=== PATIENT | female | born 1980 | race Caucasian/White ===

== ENCOUNTER 2019-12-30 16:24 | Emergency (ER) | payer OTHER ==
[2019-12-30 17:23] LABS: Basophils # (A) 0.1 k/uL (0-0.2); Basophils % (A) 1 %; Eosinophils # (A) 0.1 k/uL (0-0.7); Eosinophils % (A) 1 %; HCT 40.6 % (34.0-46.0); HGB 13.7 gm/dL (11.4-16.0); Lymphocytes # (A) 4.4 k/uL (1.0-4.8); Lymphocytes % (A) 36 %; MCH 30.3 pg (25.0-35.0); MCHC 33.7 g/dL (31.0-37.0); Monocytes # (A) 0.5 k/uL (0-1.0); Monocytes % (A) 4 %; Neutrophils # (A) 6.9 k/uL (1.3-7.7); Neutrophils % (A) 57 %; Platelet Count 314 k/uL (150-450); RBC 4.52 m/uL (3.80-5.40); RDW 12.8 % (11.5-15.5); WBC 12.2 k/uL (3.8-10.6)
[2019-12-30 17:31] LABS: Albumin 4.2 g/dL (3.5-5.0); Calcium 9.3 mg/dL (8.4-10.2); Magnesium 1.6 mg/dL (1.6-2.3); Potassium 3.6 mmol/L (3.5-5.1); Total Bilirubin 0.4 mg/dL (0.2-1.3); Total Protein 6.9 g/dL (6.3-8.2)
[2019-12-30 17:33] LABS: Partial Thromboplastin Time 25.2 sec (22.0-30.0); Prothrombin Time 10.3 sec (9.0-12.0)
--- NOTE | 2019-12-30 18:18 | XR ---
EXAMINATION TYPE: XR shoulder complete LT DATE OF EXAM: 12/30/2019 COMPARISON: NONE HISTORY: Pain TECHNIQUE: Three views are submitted. FINDINGS: The osseous structures are intact. There is no acute fracture or dislocation. The AC joint is maint ained. IMPRESSION: 1. No acute process.
--- NOTE | 2019-12-30 18:19 | XR ---
EXAMINATION TYPE: XR chest 2V DATE OF EXAM: 12/30/2019 COMPARISON: NONE TECHNIQUE: PA and lateral views submitted. HISTORY: Pain FINDINGS: The lungs are clear and there is no pneumothorax, pleural effusion, or focal pneumonia. No overt fa ilure. IMPRESSION: 1. No acute process.
--- NOTE | 2019-12-30 18:38 | CT ---
EXAMINATION TYPE: CT brain sandro wo con DATE OF EXAM: 12/30/2019 COMPARISON: None HISTORY: fall following seizure CT DLP: 1235.7 mGycm Automated exposure control for dose reduction was used. Multiple axial sections were obtained of the brain without contrast. Multiple axial sections were obt ained from the skull base to T1 vertebra without contrast. FINDINGS: Cervical vertebra show some straightening. Disc spaces are normal. Posterior elements are intact. The re is no evidence of a fracture. Skull base is intact. Ventricles and sulci appear normal. There is no mass effect nor midline shift. There is no sign of in tracranial hemorrhage. The calvarium is intact. IMPRESSION: Normal head CT scan. Mild straightening of the cervical spine is probably positional. No fracture.
--- NOTE | 2019-12-30 18:54 | ED ---
Chest Pain HPI - General Chief Complaint: Chest Pain Stated Complaint: Chest pain, lt arm pain Time Seen by Provider: 12/30/19 16:36 Source: patient Mode of arrival: ambulatory Limitations: no limitations - History of Present Illness Initial Comments: 39-year-old female presents today for chief complaint of left shoulder and chest pain after fall from seizure. Patient states she has a seizure disorder she said she really has not had evaluation for ibuprofen has whole-body shaking and this has been witnessed by family and children. Patient states she is usually on her follow-up at and then returns to regular activity she states this has been ongoing for years and she does not feel the need to be evaluated. Patient states that she had a seizure on Thursday she states she is unsure she hit her head but she believes she hit her left shoulder and said she has had left-sided chest pain and shoulder pain patient is able to fully range with discomfort the left shoulder she denies any numbness tingling loss of sensation. Patient denies any headache nausea vomiting dizziness neck pain photophobia fevers gait changes weakness of the upper extremity was or sensation deficits. Patient denies history of DVT/PE, leg swelling, pain with deep inspiration, jaw pain, right arm pain, chest pressure. Pain described as sharp increasing with rom of the left shoulder. Remaining ROS (-). - Related Data Allergies Allergy/AdvReac Type Severity Reaction Status Date / Time meloxicam [From Mobic] Allergy Unknown Verified 12/30/19 16:31 meperidine [From Demerol] Allergy Unknown Verified 12/30/19 16:31 Review of Systems ROS Statement: Those systems with pertinent positive or pertinent negative responses have been documented in the HPI. ROS Other: All systems not noted in ROS Statement are negative. EKG Findings - EKG Comments: EKG Findings:: Ventricular rate 68 bpm, W[place] interval 152 ms, QRS duration 88 ms the QT/QTC 38/412 ms. This is normal sinus is no ST elevation or depression noted. Past Medical History Past Medical History: Seizure Disorder History of Any Multi-Drug Resistant Organisms: None Reported Past Surgical History: Section Past Psychological History: Anxiety, Depression, PTSD Smoking Status: Current every day smoker Past Alcohol Use History: Occasional Past Drug Use History: None Reported General Exam - General Exam Comments Initial Comments: General: The patient is awake and alert, in no distress, and does not appear acutely ill. Eye: +3 mm pupils are equal, round and reactive to light, extra-ocular movements are intact. No nystagmus. There is normal conjunctiva bilaterally. No signs of icterus. Ears, nose, mouth and throat: There are moist mucous membranes and no oral lesions. Neck: The neck is supple, there is no tenderness or JVD. Cardiovascular: There is a regular rate and rhythm. No murmur, rub or gallop is appreciated. Respiratory: Lungs are clear to auscultation, respirations are non-labored, breath sounds are equal. No wheezes, stridor, rales, or rhonchi. Gastrointestinal: Soft, non-distended, non-tender abdomen without masses or organomegaly noted. There is no rebound or guarding present. Musculoskeletal: Normal inspection of the shoulder b/l. Radial pulses equal bilaterally 2+. Patient is able to fully range at the shoulders bilaterally patient completed the discomfort the left that spans across OF the chest. Patient is able to fully range at the elbows wrists bilaterally there is no evidence of wrist drop. Full sensation of the upper extremity bilaterally with full strength Neurological: A&O x 3. CN II-XII intact, There are no obvious motor or sensory deficits. Coordination appears grossly intact. Speech is normal. Gait without ataxia. Skin: Skin is warm and dry and no rashes or lesions are noted. Psychiatric: Cooperative, appropriate mood & affect, normal judgment. Limitations: no limitations Course Vital Signs 12/30/19 12/30/19 16:31 19:01 Temperature 97.9 F Pulse Rate 70 81 Respiratory 16 18 Rate Blood Pressure 119/67 112/73 O2 Sat by Pulse 100 99 Oximetry Chest Pain MDM - [facility] 39-year-old female presenting today for chief complaint of left shoulder and chest pain. Patient states she had a seizure and has had these for quite some time. Patient states that the pain situation left shoulder over the chest. X- ray revealed no osseous injury no dislocation patient is able to fully range on physical examination and was neurovascularly intact. Patient no focal neurological deficit CT the brain C-spine without abnormality. I recommended given patient has had no outpatient evaluation for recurrent seizures to allow transfer to [facility] and neurological evaluation. Patient refused transfer stating she prefers to f/u outpatient. Patient EKG WNL. she appears well ,VS stable. Discussed case attending provider who at this time is agreeable care plan and discharged. Disposition Clinical Impression: Chest pain, History of seizures, Left shoulder pain, Fall Disposition: HOME SELF-CARE Condition: Good Instructions (If sedation given, give patient instructions): Chest Pain (ED), New-Onset Seizure in Adults (ED) Additional Instructions: Please use medication as discussed. Please follow-up with family doctor in the next 2 days, neurology in next week. Please return to emergency room if the symptoms increase or worsen or for any other concerns. Is patient prescribed a controlled substance at d/c from ED?: No Referrals: None,Stated [Primary Care Provider] - 1-2 days [facility] [NON-STAFF] - 1-2 days Sravanthi Calhoun MD [Medical Doctor] - 1-2 days Time of Disposition: 18:53
[2019-12-30 21:06] VITALS: BP 112/73; PULSE 81; RESP 18; TEMP 97.9
== END 2019-12-30 19:01 | disposition home or self-care (01) ==
LOC: EC 16:24
DX: M25.512 Pain in left shoulder (principal); R07.9 Chest pain, unspecified; G40.909 Epilepsy, unspecified, not intractable, without status epilepticus; F17.200 Nicotine dependence, unspecified, uncomplicated; Z88.5 Allergy status to narcotic agent; Z88.6 Allergy status to analgesic agent; W19.XXXA Unspecified fall, initial encounter; Z53.29 Procedure and treatment not carried out because of patient's decision for other reasons
CPT/HCPCS: 36415; 70450; 71046; 72125; 80053; 82550; 83735; 84484; 85025; 85610; 85730; 93005; 99284

== ENCOUNTER 2020-08-28 15:24 | Emergency (ER) | payer OTHER ==
[2020-08-28 15:30] VITALS: RESP 18; TEMP 98.6
--- NOTE | 2020-08-28 15:40 | ED ---
Lower Extremity Injury HPI - General Chief Complaint: Extremity Injury, Lower Stated Complaint: ankle injury Time Seen by Provider: 08/28/20 15:26 Source: patient, RN notes reviewed Mode of arrival: ambulatory Limitations: no limitations - History of Present Illness Initial Comments: 40-year-old female presents emergency Department chief complaint left ankle pain. Patient states she was diagnosed with a fracture over for 4 weeks ago. She states she was in a walking boot up until one week ago when she took it off. She states she is supposed to wear it for 4 weeks but did not. This was diagnosed by orthopedic physician in [place]. Patient denies any paresthesias. Denies any new trauma. - Related Data Previous Rx's Medication Instructions Recorded Ibuprofen [Motrin] 600 mg PO Q8HR PRN #30 tab 08/28/20 Allergies Allergy/AdvReac Type Severity Reaction Status Date / Time meloxicam [From Mobic] Allergy Unknown Verified 08/28/20 15:25 meperidine [From Demerol] Allergy Unknown Verified 08/28/20 15:25 Review of Systems ROS Statement: Those systems with pertinent positive or pertinent negative responses have been documented in the HPI. ROS Other: All systems not noted in ROS Statement are negative. Past Medical History Past Medical History: Seizure Disorder History of Any Multi-Drug Resistant Organisms: None Reported Past Surgical History: Section Past Psychological History: Anxiety, Depression, PTSD, Schizophrenia Smoking Status: Current every day smoker Past Alcohol Use History: Occasional Past Drug Use History: Marijuana General Exam Limitations: no limitations General appearance: alert, in no apparent distress Head exam: Present: atraumatic, normocephalic, normal inspection Respiratory exam: Present: normal lung sounds bilaterally. Absent: respiratory distress, wheezes, rales, rhonchi, stridor Cardiovascular Exam: Present: regular rate, normal rhythm, normal heart sounds. Absent: systolic murmur, diastolic murmur, rubs, gallop, clicks Extremities exam: Present: other (Tenderness over the left lateral malleoli region, swellingneurovascularintactthereisnofoottendernessthereisnoproximaltib- fibtenderness) Course Vital Signs 08/28/20 08/28/20 15:26 15:43 Temperature 98.6 F Pulse Rate 80 74 Respiratory 18 18 Rate Blood Pressure 118/79 O2 Sat by Pulse 98 Oximetry Medical Decision Making - Medical Decision Making X-ray reviewed there shows healing fracture of the distal tibia. Patient advised to continue where her orthopedic boot. Return parameters were discussed. Disposition Clinical Impression: Closed fracture of left distal fibula Disposition: HOME SELF-CARE Condition: Stable Instructions (If sedation given, give patient instructions): Leg Fracture (ED) Additional Instructions: Please return to the Emergency Department if symptoms worsen or any other concerns. Prescriptions: Ibuprofen [Motrin] 600 mg PO Q8HR PRN #30 tab PRN Reason: Pain Is patient prescribed a controlled substance at d/c from ED?: No Referrals: None,Stated [Primary Care Provider] - 1-2 days Matthew Gaines MD [STAFF PHYSICIAN] - 1-2 days Time of Disposition: 16:13
[2020-08-28 15:44] VITALS: BP 118/79; PULSE 74
--- NOTE | 2020-08-28 16:16 | XR ---
EXAMINATION TYPE: XR ankle complete LT DATE OF EXAM: 08/28/2020 COMPARISON: None HISTORY: Pain, fall TECHNIQUE: Three-view left ankle FINDINGS: There is a transverse fracture distal fibula. Ankle mortise appears intact. No additional fractures are evident. Soft tissues appear normal. IMPRESSION: 1. Transverse fracture distal lateral malleolus.
== END 2020-08-28 16:22 | disposition home or self-care (01) ==
LOC: EC 15:24
DX: S82.62XA Displaced fracture of lateral malleolus of left fibula, initial encounter for closed fracture (principal); F17.200 Nicotine dependence, unspecified, uncomplicated; Z88.5 Allergy status to narcotic agent; Z88.8 Allergy status to other drugs, medicaments and biological substances; X58.XXXA Exposure to other specified factors, initial encounter
CPT/HCPCS: 99283

== ENCOUNTER 2021-01-19 11:33 | Emergency (ER) | payer OTHER ==
[2021-01-19 11:38] VITALS: BP 112/59; PULSE 90; RESP 18; TEMP 97.7
--- NOTE | 2021-01-19 11:55 | ED ---
ENT HPI - General Chief complaint: ENT Stated complaint: ENT Time Seen by Provider: 01/19/21 11:40 Source: patient Mode of arrival: ambulatory Limitations: no limitations - History of Present Illness Initial comments: 40-year-old female presents to the emergency department with a chief complaint of sore throat and right ear pain. Patient reports symptoms of an ongoing for about a week. Patient reports there is no pain when pulling on the ear but otherwise the pain is constant. Denies any loss of hearing. Patient also reports a sore throat was on this patient. She denies any fevers or chills. Denies any chest pain or shortness of breath. Patient is not diabetic. No significant submandibular swelling. - Related Data Previous Rx's Medication Instructions Recorded Ibuprofen [Motrin] 600 mg PO Q8HR PRN #30 tab 08/28/20 Allergies Allergy/AdvReac Type Severity Reaction Status Date / Time meloxicam [From Mobic] Allergy Unknown Verified 01/19/21 11:38 meperidine [From Demerol] Allergy Unknown Verified 01/19/21 11:38 Review of Systems ROS Statement: Those systems with pertinent positive or pertinent negative responses have been documented in the HPI. ROS Other: All systems not noted in ROS Statement are negative. Past Medical History Past Medical History: Seizure Disorder History of Any Multi-Drug Resistant Organisms: None Reported Past Surgical History: Section Past Psychological History: Anxiety, Depression, PTSD, Schizophrenia Smoking Status: Current every day smoker Past Alcohol Use History: Occasional Past Drug Use History: Marijuana General Exam Limitations: no limitations General appearance: alert, in no apparent distress Head exam: Present: atraumatic, normocephalic, normal inspection Eye exam: Present: normal appearance, PERRL, EOMI Pupils: Present: normal accommodation ENT exam: Present: normal exam, normal oropharynx (Mild right-sided tonsillar swelling and erythema. No signs of peritonsillar abscess. Uvula midline. No Andrew's angina.), mucous membranes moist, normal external ear exam. Absent: TM's normal bilaterally (Mild erythema in the right tympanic membrane) Neck exam: Present: normal inspection, full ROM. Absent: tenderness Respiratory exam: Present: normal lung sounds bilaterally. Absent: respiratory distress Cardiovascular Exam: Present: regular rate, normal rhythm, normal heart sounds Extremities exam: Present: normal inspection, full ROM. Absent: tenderness Back exam: Present: normal inspection, full ROM. Absent: tenderness, CVA tenderness (R), CVA tenderness (L) Neurological exam: Present: alert, oriented X3 Psychiatric exam: Present: normal affect, normal mood Skin exam: Present: warm, dry, intact, normal color Course Vital Signs 01/19/21 11:35 Temperature 97.7 F Pulse Rate 90 Respiratory 18 Rate Blood Pressure 112/59 O2 Sat by Pulse 99 Oximetry Medical Decision Making - Medical Decision Making 40-year-old female presents emergency Department with chief complaint of sore throat and ear pain. On physical examination, she has mild right-sided tonsillar erythema. Likely viral. Also has erythema in the right tympanic membrane. No signs for a peritonsillar abscess. No changes in voice. No Andrew's angina. Patient will be treated for otitis media with amoxicillin. Return parameters discussed the patient was worsening agreeable. Case discussed with Dr. Li. Disposition Clinical Impression: Otitis media, right Disposition: HOME SELF-CARE Condition: Stable Instructions (If sedation given, give patient instructions): Earache (ED) Additional Instructions: Temperature medication as directed. Return to emergency department if symptoms worsen. Follow with her primary care physician. Is patient prescribed a controlled substance at d/c from ED?: No Referrals: None,Stated [Primary Care Provider] - 1-2 days Time of Disposition: 11:55
== END 2021-01-19 12:12 | disposition home or self-care (01) ==
LOC: EC 11:33
DX: H66.91 Otitis media, unspecified, right ear (principal); L53.9 Erythematous condition, unspecified; F17.200 Nicotine dependence, unspecified, uncomplicated; Z88.6 Allergy status to analgesic agent; Z88.5 Allergy status to narcotic agent
CPT/HCPCS: 99282

== ENCOUNTER 2022-10-01 11:43 | Emergency (ER) | payer OTHER ==
[2022-10-01 12:06] VITALS: BP 142/83; PULSE 61; TEMP 97.9
[2022-10-01] MEDS ORDERED: methylPREDNISolone SOD SUCCI 125 MG/2 ML VIAL IM ONE (12:26)
[2022-10-01] MEDS ORDERED: HYDROcodone/APAP 5-325MG 1 EACH TAB PO STA (12:27)
[2022-10-01] MEDS ORDERED: LIDOCAINE 5% PATCH TOPICAL SCH (12:30)
--- NOTE | 2022-10-01 12:34 | ED ---
Back Pain HPI - General Chief Complaint: Back Pain/Injury Stated Complaint: sciatic nerve pain Time Seen by Provider: 10/01/22 12:12 Source: patient, RN notes reviewed Limitations: no limitations - History of Present Illness Initial Comments: This is a 42-year-old female who presents to the emergency department for back pain. She was evaluated here on 09/18 for a sciatica flareup, and was treated successfully with prednisone, Glidden, and Flexeril. This morning, she was walking her dog, when she slipped in the snow. Currently having pain in the lower back. She is unable to lay on her back due to the pain. She does have an allergy to NSAIDs and has been taking Tylenol with no relief. Denies any loss of bowel or bladder control or saddle anesthesia. Denies any fevers, chills, sore throat, cough, dyspnea, chest pain, palpitations, abdominal pain, nausea, vomiting, diarrhea, or headaches. MD Complaint: back pain, back injury, fall Place: street Radiation: right leg Context: fall Treatments Prior to Arrival: acetaminophen - Related Data Previous Rx's Medication Instructions Recorded Ibuprofen [Motrin] 600 mg PO Q8HR PRN #30 tab 08/28/20 Amoxicillin 875 mg PO Q12HR #20 tablet 01/19/21 Cyclobenzaprine [Flexeril] 5 mg PO TID PRN #10 tablet 10/01/22 HYDROcodone/APAP 5-325MG [Glidden 1 tab PO Q6HR PRN 3 Days #12 tab 10/01/22 5-325] predniSONE 50 mg PO DAILY 5 Days #5 tab 10/01/22 Allergies Allergy/AdvReac Type Severity Reaction Status Date / Time meloxicam [From Mobic] Allergy Unknown Verified 10/01/22 12:06 meperidine [From Demerol] Allergy Unknown Verified 10/01/22 12:06 Review of Systems ROS Statement: Those systems with pertinent positive or pertinent negative responses have been documented in the HPI. ROS Other: All systems not noted in ROS Statement are negative. Past Medical History Past Medical History: Seizure Disorder Additional Past Medical History / Comment(s): sciatica History of Any Multi-Drug Resistant Organisms: None Reported Past Surgical History: Section Past Psychological History: Anxiety, Depression, PTSD, Schizophrenia Smoking Status: Current every day smoker Past Alcohol Use History: Occasional Past Drug Use History: Marijuana General Exam Limitations: no limitations General appearance: alert, in distress Head exam: Present: atraumatic, normocephalic, normal inspection Respiratory exam: Present: normal lung sounds bilaterally. Absent: respiratory distress, wheezes, rales, rhonchi, stridor Cardiovascular Exam: Present: regular rate, normal rhythm, normal heart sounds. Absent: systolic murmur, diastolic murmur, rubs, gallop, clicks Back exam: Present: normal inspection, tenderness (Base of the lumbar spine). Absent: full ROM Neurological exam: Present: alert, oriented X3, CN II-XII intact Psychiatric exam: Present: normal affect, normal mood Skin exam: Present: warm, dry, intact, normal color. Absent: rash Course Vital Signs 10/01/22 10/01/22 12:03 13:38 Temperature 97.9 F Pulse Rate 61 Respiratory 20 18 Rate Blood Pressure 142/83 O2 Sat by Pulse 94 L Oximetry Medical Decision Making - Medical Decision Making This is a 42-year-old female who presents to the emergency department for lower back pain. X-ray of the lumbar spine obtained, and on my interpretation I'm unable to identify any fractures or dislocations. She was given a dose of Solu- Medrol, Glidden, and a lidocaine patch with good effect. Because the patient has an allergy to NSAIDs, I'm willing to provide a short course of Glidden for her wilfrido n. 5 day course of prednisone was provided. She is instructed to take the Glidden very sparingly when her pain is the most severe, and to otherwise take Tylenol. Reminded her that the Flexeril is very sedating and should be taken at night. She should also avoid combining this with the Glidden because it will increase the sedative effects. Risks of respiratory depression, including , from the sedative effects of the Glidden and Flexeril were reviewed with the patient, and she expresses understanding. Return precautions reviewed in depth, the patient is instructed to return to the emergency department with any new, worsening, or concerning symptoms, including loss of bowel or bladder control and saddle anesthesia. Patient verbalized understanding. This case was discussed in detail with the attending ED physician. Presentation, findings, and treatment plan discussed in detail as well. - Radiology Data Radiology results: report reviewed, image reviewed Disposition Clinical Impression: Lumbar back pain, Lumbar radiculopathy, right Disposition: HOME SELF-CARE Instructions (If sedation given, give patient instructions): Acute Low Back Pain (ED), Lumbar Radiculopathy (ED) Additional Instructions: Return to the emergency department with any new, worsening, or concerning symptoms. Take the prednisone daily for 5 days. Take the Glidden very sparingly when your pain is the most severe and otherwise take Tylenol. The Flexeril may be sedating and should be taken at night until you know how it affects you. It is best to avoid taking the flexeril with Glidden because it can increase the sedative effects. Follow up with your primary care provider in 1-2 days. Prescriptions: Cyclobenzaprine [Flexeril] 5 mg PO TID PRN #10 tablet PRN Reason: Pain HYDROcodone/APAP 5-325MG [Glidden 5-325] 1 tab PO Q6HR PRN 3 Days #12 tab PRN Reason: Pain predniSONE 50 mg PO DAILY 5 Days #5 tab Is patient prescribed a controlled substance at d/c from ED?: No Referrals: Leslie Bagley MD [Primary Care Provider] - 1-2 days
--- NOTE | 2022-10-01 12:59 | XR ---
EXAMINATION TYPE: XR lumbar spine 2 or 3V DATE OF EXAM: 10/01/2022 12:40 PM INDICATION: Patient age:Female; 42 years old; Reason for study: Pain after injury; [facility]. COMPARISON: 09/18/2022 TECHNIQUE: Frontal, lateral and coned in L5-S1 lateral views of the spine. FINDINGS: No evidence of any acute osseous pathology. No evidence of loss of vertebral body height i s seen. There is normal alignment of the lumbar vertebral bodies. No significant degeneration changes throughout the spine. Scattered facet joint arthropathy throughout the spine. IMPRESSION: No acute fracture. No change from prior.
[2022-10-01 13:39] VITALS: RESP 18
== END 2022-10-01 13:47 | disposition home or self-care (01) ==
LOC: EC 11:43
DX: M54.50 Low back pain, unspecified (principal); M54.10 Radiculopathy, site unspecified; F32.A Depression, unspecified; F41.9 Anxiety disorder, unspecified; F17.200 Nicotine dependence, unspecified, uncomplicated; F12.90 Cannabis use, unspecified, uncomplicated; Z79.899 Other long term (current) drug therapy; Z88.5 Allergy status to narcotic agent; Z88.6 Allergy status to analgesic agent
CPT/HCPCS: 72100; 99283; 96372; J2930

== ENCOUNTER 2023-03-14 21:49 | Emergency (ER) | payer OTHER ==
[2023-03-14] MEDS ORDERED: SODIUM CHLORIDE 0.9% 1,000 ML IV ONE (22:49)
--- NOTE | 2023-03-14 22:53 | ED ---
Abdominal Pain HPI - General Chief Complaint: Abdominal Pain Stated Complaint: Lower ABD Pain Time Seen by Provider: 03/14/23 22:35 Source: patient Mode of arrival: ambulatory Limitations: no limitations - History of Present Illness Initial Comments: This patient is a 42-year-old woman who presents 7 evaluation of left lower quadrant abdominal pain. The pain started 2 days ago when her dog jumped and struck her abdomen. She states she had just arrived home from work. Since that time she has had some left lower quadrant pain that has worsened. She denies change in urination or bowel movements. No nausea or vomiting. Pain is moderate, sharp and aching, worse with movement. MD Complaint: abdominal pain Onset/Timin -: days(s) Location: LLQ Radiation: none Migration to: no migration Severity: moderate Quality: sharp Consistency: constant Improves With: nothing Worsens With: movement Associated Symptoms: denies other symptoms - Related Data Previous Rx's Medication Instructions Recorded Ibuprofen [Motrin] 600 mg PO Q8HR PRN #30 tab 08/28/20 Amoxicillin 875 mg PO Q12HR #20 tablet 01/19/21 Cyclobenzaprine [Flexeril] 5 mg PO TID PRN #10 tablet 10/01/22 HYDROcodone/APAP 5-325MG [Rocky 1 tab PO Q6HR PRN 3 Days #12 tab 10/01/22 5-325] predniSONE 50 mg PO DAILY 5 Days #5 tab 10/01/22 HYDROcodone/APAP 5-325MG [Rocky 1 tab PO Q4HR PRN 3 Days #10 tab 03/15/23 5-325] Nitrofurantoin Monohyd/M-Cryst 100 mg PO Q12HR #6 cap 03/15/23 [Macrobid] Allergies Allergy/AdvReac Type Severity Reaction Status Date / Time haloperidol [From Haldol] Allergy Anaphylaxis Verified 03/14/23 22:24 meloxicam [From Mobic] Allergy Unknown Verified 03/14/23 22:24 meperidine [From Demerol] Allergy Unknown Verified 03/14/23 22:24 Review of Systems ROS Statement: Those systems with pertinent positive or pertinent negative responses have been documented in the HPI. ROS Other: All systems not noted in ROS Statement are negative. Constitutional: Denies: fever, chills Respiratory: Denies: cough, dyspnea Cardiovascular: Denies: chest pain, palpitations, edema Gastrointestinal: Reports: abdominal pain. Denies: nausea, vomiting, diarrhea, constipation, melena, hematochezia Genitourinary: Denies: dysuria, hematuria Musculoskeletal: Denies: back pain Skin: Denies: rash Neurological: Denies: headache, weakness Past Medical History Past Medical History: Seizure Disorder Additional Past Medical History / Comment(s): sciatica History of Any Multi-Drug Resistant Organisms: None Reported Past Surgical History: Section Past Psychological History: Anxiety, Depression, PTSD, Schizophrenia Smoking Status: Current every day smoker Past Alcohol Use History: Rare Past Drug Use History: Marijuana General Exam Limitations: no limitations General appearance: alert, in no apparent distress Head exam: Present: atraumatic, normocephalic Eye exam: Present: normal appearance. Absent: scleral icterus, conjunctival injection Neck exam: Present: normal inspection Respiratory exam: Present: normal lung sounds bilaterally. Absent: respiratory distress, wheezes, rales, rhonchi, stridor Cardiovascular Exam: Present: regular rate, normal rhythm, normal heart sounds. Absent: systolic murmur, diastolic murmur, rubs, gallop GI/Abdominal exam: Present: soft, tenderness, normal bowel sounds. Absent: distended, guarding, rebound, rigid, mass, pulsatile mass, hernia Extremities exam: Present: normal inspection, normal capillary refill Back exam: Present: normal inspection. Absent: CVA tenderness (R), CVA tenderness (L) Neurological exam: Present: alert Skin exam: Present: warm, dry, intact, normal color. Absent: rash Course Vital Signs 03/14/23 03/15/23 03/15/23 22:25 00:00 04:01 Temperature 98 F 98.1 F Pulse Rate 101 H 90 82 Respiratory 18 16 16 Rate Blood Pressure 137/84 130/79 140/85 O2 Sat by Pulse 98 99 97 Oximetry Medical Decision Making - Medical Decision Making The patient was having abdominal tenderness and therefore computed tomography scan of the abdomen was ordered, which I interpreted as showing left adnexal mass. Follow on ultrasound of the pelvis ordered which was interpreted by radiology being consistent with left ovarian cyst. The patient did have some relief with analgesia. We discussed appropriate further care and follow-up as well as return parameters. Was pt. sent in by a medical professional or institution (, PA, [facility], urgent care, hospital, or group home...) When possible be specific @ -[No] Did you speak to anyone other than the patient for history (EMS, parent, family, police, friend...)? What history was obtained from this source @ -[No] Did you review nursing and triage notes (agree or disagree)? Why? @ -[I reviewed and agree with nursing and triage notes] Were old charts reviewed (outside hosp., previous admission, EMS record, old EKG, old radiological studies, urgent care reports/EKG's, group home records)? Report findings @ -[No old charts were reviewed] Differential Diagnosis (chest pain, altered mental status, abdominal pain women, abdominal pain men, vaginal bleeding, weakness, fever, dyspnea, syncope, headache, dizziness, GI bleed, back pain, seizure, CVA, palpatations, mental health, musculoskeletal)? @ -[Differential Abdominal Pain Women: Appendicitis, Cholecystitis, diverticulosis, ischemic bowel, pancreatitis, hepatitis, UTI, gastroenteritis, AAA, incarcerated hernia, bowel obstruction, constipation, inflammatory bowel, hepatitis, peptic ulcer disease, splenic infarction, perforated viscus, vulvitis, ovarian torsion, PID, kidney stone, pl acenta abruption, this is not meant to be an all-inclusive list EKG interpreted by me (3pts min.). @ -[ X-rays interpreted by me (1pt min.). @ -[None done] CT interpreted by me (1pt min.). @ -[As above U/S interpreted by me (1pt. min.). @ -[Interpretation by radiology What testing was considered but not performed or refused? (CT, X-rays, U/S, labs)? Why? @ -[None] What meds were considered but not given or refused? Why? @ -[None] Did you discuss the management of the patient with other professionals (professionals i.e. , PA, [employer], lab, RT, psych nurse, director social, car dumper operator helper, teacher, operations officer afloat, onsite case manager)? Give summary @ -[No] Was smoking cessation discussed for >3mins.? @ -[No] Was critical care preformed (if so, how long)? @ -[No] Were there social determinants of health that impacted care today? How? (Homelessness, low income, unemployed, alcoholism, drug addiction, transportation, low edu. Level, literacy, decrease access to med. care, shelter, rehab)? @ -[No] Was there de-escalation of care discussed even if they declined (Discuss DNR or withdrawal of care, Hospice)? DNR status @ -[No] What co-morbidities impacted this encounter? (DM, HTN, Smoking, COPD, CAD, Cancer, CVA, ARF, Chemo, Hep., AIDS, mental health diagnosis, sleep apnea, morbid obesity)? @ -[None] Was patient admitted / discharged? Hospital course, mention meds given and route, prescriptions, significant lab abnormalities, going to OR and other pertinent info. @ -[Discharged Undiagnosed new problem with uncertain prognosis? @ -[No] Drug Therapy requiring intensive monitoring for toxicity (Heparin, Nitro, Insulin, Cardizem)? @ -[No] Were any procedures done? @ -[No] Diagnosis/symptom? @ -[Acute abdominal pain Acute ovarian cyst Acute urinary tract infection Acute, or Chronic, or Acute on Chronic? @ -[default] Uncomplicated (without systemic symptoms) or Complicated (systemic symptoms)? @ -[Uncomplicated Side effects of treatment? @ -[No] Exacerbation, Progression, or Severe Exacerbation? @ -[No] Poses a threat to life or bodily function? How? (Chest pain, [place], [place], pneumonia, PE, COPD, DKA, ARF, appy, cholecystitis, CVA, Diverticulitis, Homicidal, Suicidal, threat to staff... and all critical care pts) @ -[No] - Lab Data Result diagrams: 03/14/23 22:40 03/14/23 22:40 Lab Results 03/14/23 03/14/23 03/14/23 Range/Units 22:40 22:40 22:49 WBC 9.0 (3.8-10.6) k/uL RBC 4.42 (3.80-5.40) m/uL Hgb 12.2 (11.4-16.0) gm/dL Hct 37.2 (34.0-46.0) % MCV 84.0 (80.0-100.0) fL MCH 27.7 (25.0-35.0) pg MCHC 33.0 (31.0-37.0) g/dL RDW 14.6 (11.5-15.5) % Plt Count 320 (150-450) k/uL MPV 8.1 Neutrophils % 61 % Lymphocytes % 31 % Monocytes % 5 % Eosinophils % 1 % Basophils % 0 % Neutrophils # 5.5 (1.3-7.7) k/uL Lymphocytes # 2.8 (1.0-4.8) k/uL Monocytes # 0.5 (0-1.0) k/uL Eosinophils # 0.1 (0-0.7) k/uL Basophils # 0.0 (0-0.2) k/uL Sodium 137 (137-145) mmol/L Potassium 3.8 (3.5-5.1) mmol/L Chloride 101 (98-107) mmol/L Carbon Dioxide 24 (22-30) mmol/L Anion Gap 12 mmol/L BUN 8 (7-17) mg/dL Creatinine 0.43 L (0.52-1.04) mg/dL Est GFR (CKD-EPI)AfAm >90 (>60 ml/min/1.73 sqM) Est GFR (CKD-EPI)NonAf >90 (>60 ml/min/1.73 sqM) Glucose 90 (74-99) mg/dL Calcium 8.8 (8.4-10.2) mg/dL Total Bilirubin 0.4 (0.2-1.3) mg/dL AST 24 (14-36) U/L ALT 16 (4-34) U/L Alkaline Phosphatase 81 (38-126) U/L Total Protein 7.2 (6.3-8.2) g/dL Albumin 4.2 (3.5-5.0) g/dL Amylase 40 (30-110) U/L Lipase 47 (23-300) U/L Urine Color Light Yellow Urine Appearance Clear (Clear) Urine pH 7.0 (5.0-8.0) Ur Specific [place] 1.006 (1.001-1.035) Urine Protein Negative (Negative) Urine Glucose (UA) Negative (Negative) Urine Ketones Negative (Negative) Urine Blood Negative (Negative) Urine Nitrite Negative (Negative) Urine Bilirubin Negative (Negative) Urine Urobilinogen <2.0 (<2.0) mg/dL Ur Leukocyte Esterase Large H (Negative) Urine RBC 1 (0-5) /hpf Urine WBC 16 H (0-5) /hpf Ur Squamous Epith Cells 2 (0-4) /hpf Urine Bacteria Rare H (None) /hpf Urine HCG, Qual (Not Detectd) Chlamydia Source Chlamydia DNA (PCR) (Neg,Equiv) N. gonorrhoeae Source N.gonorrhoeae DNA Probe (Neg,Equiv) 03/14/23 03/15/23 Range/Units 22:49 01:57 WBC (3.8-10.6) k/uL RBC (3.80-5.40) m/uL Hgb (11.4-16.0) gm/dL Hct (34.0-46.0) % MCV (80.0-100.0) fL MCH (25.0-35.0) pg MCHC (31.0-37.0) g/dL RDW (11.5-15.5) % Plt Count (150-450) k/uL MPV Neutrophils % % Lymphocytes % % Monocytes % % Eosinophils % % Basophils % % Neutrophils # (1.3-7.7) k/uL Lymphocytes # (1.0-4.8) k/uL Monocytes # (0-1.0) k/uL Eosinophils # (0-0.7) k/uL Basophils # (0-0.2) k/uL Sodium (137-145) mmol/L Potassium (3.5-5.1) mmol/L Chloride (98-107) mmol/L Carbon Dioxide (22-30) mmol/L Anion Gap mmol/L BUN (7-17) mg/dL Creatinine (0.52-1.04) mg/dL Est GFR (CKD-EPI)AfAm (>60 ml/min/1.73 sqM) Est GFR (CKD-EPI)NonAf (>60 ml/min/1.73 sqM) Glucose (74-99) mg/dL Calcium (8.4-10.2) mg/dL Total Bilirubin (0.2-1.3) mg/dL AST (14-36) U/L ALT (4-34) U/L Alkaline Phosphatase (38-126) U/L Total Protein (6.3-8.2) g/dL Albumin (3.5-5.0) g/dL Amylase (30-110) U/L Lipase (23-300) U/L Urine Color Urine Appearance (Clear) Urine pH (5.0-8.0) Ur Specific [place] (1.001-1.035) Urine Protein (Negative) Urine Glucose (UA) (Negative) Urine Ketones (Negative) Urine Blood (Negative) Urine Nitrite (Negative) Urine Bilirubin (Negative) Urine Urobilinogen (<2.0) mg/dL Ur Leukocyte Esterase (Negative) Urine RBC (0-5) /hpf Urine WBC (0-5) /hpf Ur Squamous Epith Cells (0-4) /hpf Urine Bacteria (None) /hpf Urine HCG, Qual Not Detected (Not Detectd) Chlamydia Source Urine Chlamydia DNA (PCR) Negative (Neg,Equiv) N. gonorrhoeae Source Urine N.gonorrhoeae DNA Probe Negative (Neg,Equiv) Disposition Clinical Impression: Abdominal pain, Ovarian cyst, Urinary tract infection Disposition: HOME SELF-CARE Condition: Good Instructions (If sedation given, give patient instructions): Ovarian Cyst (ED), Abdominal Pain (ED) Prescriptions: Nitrofurantoin Monohyd/M-Cryst [Macrobid] 100 mg PO Q12HR #6 cap HYDROcodone/APAP 5-325MG [Rocky 5-325] 1 tab PO Q4HR PRN 3 Days #10 tab PRN Reason: Pain Is patient prescribed a controlled substance at d/c from ED?: Yes When asked, does pt state using other controlled substances?: No If prescribed controlled substance>3 days was MAPS reviewed?: Prescribed <3 Days If opioid is for acute pain is fill amount 7 days or less?: Yes If Rx opioid, was Start Talking consent form obtained?: Yes Referrals: Leslie Bagley MD [Primary Care Provider] - 1-2 days Alexandrea Dennis MD [STAFF PHYSICIAN] - 1-2 days
[2023-03-14 23:10] LABS: Basophils % (A) 0 %; Eosinophils # (A) 0.1 k/uL (0-0.7); Eosinophils % (A) 1 %; HCT 37.2 % (34.0-46.0); HGB 12.2 gm/dL (11.4-16.0); Lymphocytes # (A) 2.8 k/uL (1.0-4.8); Lymphocytes % (A) 31 %; MCH 27.7 pg (25.0-35.0); Mean Platelet Volume 8.1; Monocytes # (A) 0.5 k/uL (0-1.0); Monocytes % (A) 5 %; Neutrophils # (A) 5.5 k/uL (1.3-7.7); Neutrophils % (A) 61 %; Platelet Count 320 k/uL (150-450); RBC 4.42 m/uL (3.80-5.40); RDW 14.6 % (11.5-15.5)
[2023-03-14 23:40] LABS: ALT 16 U/L (4-34); AST 24 U/L (14-36); African American GFR (CKD) >90 (>60 ml/min/1.73 sqM); Albumin 4.2 g/dL (3.5-5.0); Alkaline Phosphatase 81 U/L (38-126); Amylase 40 U/L (30-110); Anion Gap 12 mmol/L; Blood Urea Nitrogen 8 mg/dL (7-17); Calcium 8.8 mg/dL (8.4-10.2); Carbon Dioxide 24 mmol/L (22-30); Chloride 101 mmol/L (98-107); Glucose 90 mg/dL (74-99); Lipase 47 U/L (23-300); Non-African American GFR(CKD) >90 (>60 ml/min/1.73 sqM); Potassium 3.8 mmol/L (3.5-5.1); Sodium 137 mmol/L (137-145); Total Bilirubin 0.4 mg/dL (0.2-1.3); Total Protein 7.2 g/dL (6.3-8.2)
[2023-03-14] MEDS ORDERED: KETOROLAC 15 MG/ML 1 ML VIAL IVP STA (23:46)
[2023-03-15 00:44] VITALS: RESP 16
[2023-03-15] MEDS ORDERED: MORPHINE SULFATE 4 MG/ML SYRINGE IV STA ×2 (00:56→03:45)
--- NOTE | 2023-03-15 01:55 | CT ---
EXAM: CT Abdomen and Pelvis Without Intravenous Contrast CLINICAL HISTORY: ITS.REASON CT Reason: LLQ pain TECHNIQUE: Axial computed tomography images of the abdomen and pelvis without intravenous contrast. CTDI is 9.3 mGy and DLP is 516.3 mGy-cm. This CT exam was performed using one or more of the following dose reduction techniques: automated exposure control, adjustment of the mA and/or kV according to patient size, and/or use of iterative reconstruction technique. COMPARISON: No previous studies. FINDINGS: Lung bases: Minimal scarring and subsegmental atelectasis noted at the lung bases. Heart: Heart is normal in size. ABDOMEN: Liver: Diffuse fatty infiltration of the liver is noted. Gallbladder and bile ducts: The gallbladder is unremarkable. Pancreas: See below. Spleen: Spleen is normal in contour. Adrenals: The adrenal glands, the head, body, tail of the pancreas and the gallbladder are unremarkable. Kidneys and ureters: Unremarkable. No renal calculus or hydronephrosis. Stomach and bowel: Moderate quantity of stool throughout the colon without bowel obstruction. Moderate quantity of ingested material in the stomach. No mucosal thickening. PELVIS: Appendix: The appendix is seen on coronal image 44 and is unremarkable. Bladder: Unremarkable. No stones. Reproductive: Located at the left adnexal region, there is a thick- walled 4.9 x 4.7 x 4.1 cm cystic structure, presumably of left ovarian etiology with extensive stranding within the mesenteric fat surrounding it. Other etiology such as tubo-ovarian abscess collection cannot be excluded and further workup is highly advised. ABDOMEN and PELVIS: Intraperitoneal space: Unremarkable. No free air. No significant fluid collection. Bones/joints: No acute fracture. No dislocation. Soft tissues: Unremarkable. Vasculature: Unremarkable. No abdominal aortic aneurysm. Lymph nodes: Unremarkable. No enlarged lymph nodes. IMPRESSION: 1. Thick-walled cystic structure of the left adnexa measuring 4.9 cm possibly representing complex left ovarian cyst. Inflammatory changes are noted within the fat surrounding this lesion. Etiology such as a tubo-ovarian abscess collection cannot be excluded. Transvaginal imaging of the pelvis highly advised to further assessment the left adnexa. Further workup is necessary. 2. The gallbladder is unremarkable. 3. No hydronephrosis. 4. The appendix is unremarkable. 5. No bowel obstruction.
[2023-03-15 02:06] LABS: Appearance,Urine Clear (Clear); Bacteria,Urine Rare /hpf; Bilirubin,Urine Negative (Negative); Blood,Urine Negative (Negative); Color,Urine Light Yellow; Glucose,Urine (UA) Negative (Negative); Ketones,Urine Negative (Negative); Leukocyte Esterase,Urine Large (Negative); Nitrite,Urine Negative (Negative); Protein,Urine Negative (Negative); RBC,Urine 1 /hpf (0-5); Specific Gravity,Urine 1.006 (1.001-1.035); Squamous Epithelial Cell,Urine 2 /hpf (0-4); Urobilinogen,Urine <2.0 mg/dL (<2.0); WBC,Urine 16 /hpf (0-5)
--- NOTE | 2023-03-15 03:33 | US ---
EXAM: US Pelvis Transabdominal and Transvaginal, Complete CLINICAL HISTORY: R/O torsion, L ovary TECHNIQUE: Real-time complete transabdominal and transvaginal pelvic ultrasound with image documentation. Transvaginal imaging was used for better evaluation of the endometrium and adnexa. COMPARISON: No relevant prior studies available. FINDINGS: Uterus/cervix: Uterus measures 7.3 x 4.1 x 5.3 cm. Normal endometrial stripe thickness at 9 mm. No myometrial mass. Right ovary: Not visualized due to extensive overlying bowel gas. Left ovary: 3.6 x 2.5 x 3.6 cm. Normal blood flow. No adnexal mass. Free fluid: No free fluid. IMPRESSION: No evidence of left ovarian torsion. Right ovary not identified.
[2023-03-15 04:02] VITALS: BP 140/85; PULSE 82; TEMP 98.1
[2023-03-16 14:05] LABS: C. trachomatis,PCR Negative (Neg,Equiv); Chlamydia trachomatis Source Urine; N. gonorrhoeae,PCR Negative (Neg,Equiv); Neisseria Source Urine
== END 2023-03-15 04:06 | disposition home or self-care (01) ==
LOC: EC 21:49
DX: N83.202 Unspecified ovarian cyst, left side (principal); N39.0 Urinary tract infection, site not specified; F17.200 Nicotine dependence, unspecified, uncomplicated; F12.90 Cannabis use, unspecified, uncomplicated; Z88.5 Allergy status to narcotic agent; Z88.8 Allergy status to other drugs, medicaments and biological substances
CPT/HCPCS: 36415; 80053; 82150; 83690; 85025; 81001; 81025; 87491; 87591; 93976; 76830; 74176; 99284; 96374; 96375; 96376; 96361 ×4; J2270; J1885